=== PATIENT | female | born 1985 | race Caucasian/White ===

== ENCOUNTER → 2017-03-17 | Outpatient (CLI) | payer OTHER ==
[2017-03-17 10:33] LABS: FREE T4 1.06 NG/DL (0.76-1.46)
[2017-03-17 10:33] LABS: IRON (FE) 35 UG/DL (50-170)
== END ==
LOC: M LAB 09:18
DX: L65.9 Nonscarring hair loss, unspecified (principal)
CPT/HCPCS: 83540

== ENCOUNTER → 2017-03-27 | Outpatient (REF) | payer OTHER, MEDICARE | LOC: M SFHCPLAZ 11:42 | DX: Z12.4 Encounter for screening for malignant neoplasm of cervix (principal); E61.1 Iron deficiency ==

== ENCOUNTER → 2017-06-24 | Outpatient (REF) | payer MEDICARE ==
[2017-06-24 13:21] LABS: IRON (FE) 36 UG/DL (50-170)
== END ==
LOC: M SFHCPLAZ 08:40
DX: E61.1 Iron deficiency (principal)
CPT/HCPCS: 83540

== ENCOUNTER → 2017-09-25 | Outpatient (REF) | payer MEDICARE | LOC: M SFHCPLAZ 08:20 | DX: E61.1 Iron deficiency (principal); Z53.8 Procedure and treatment not carried out for other reasons ==

== ENCOUNTER → 2018-06-24 | Outpatient (CLI) | payer OTHER ==
--- NOTE | 2018-06-24 13:57 | REP ---
Left foot: Four views. History: Pain in the left foot. Findings: Four views of the left foot demonstrate overall normal mineralization. There is plantar calcaneal spurring. No fractures seen. Bones, joints and soft tissues are otherwise unremarkable. Impression: Plantar heel spur. No acute bony abnormality. Electronically Signed by David Leggett MD 06/24/2018 09:44 A
--- NOTE | 2018-06-24 13:57 | REP ---
Left rib series: Five views including PA chest. History: Left-sided rib pain. Findings: PA chest radiograph is normal. There is no evidence of infiltrate or atelectasis. No pneumothorax or hydrothorax is seen. Mediastinum is not widened. Heart size is normal. The lung orozco are clear. Multiple views of the left rib cage demonstrate no visible rib fracture or bony destructive lesion. Impression: Negative left rib radiographs. Electronically Signed by David Leggett MD 06/24/2018 09:43 A
== END ==
LOC: M RAD 08:43
PROVIDERS: ATTEND Family Medicine
DX: M77.32 Calcaneal spur, left foot (principal); R07.81 Pleurodynia

== ENCOUNTER → 2018-06-24 | Outpatient (REF) | payer OTHER ==
[2018-06-26 15:51] LABS: HPV HYBRID CAPTURE II Negative (Negative)
== END ==
LOC: M SFHCWAGY 11:40
PROVIDERS: ATTEND Nurse Practitioner Women's Health
DX: Z12.4 Encounter for screening for malignant neoplasm of cervix (principal); N87.0 Mild cervical dysplasia

== ENCOUNTER 2018-12-05 21:35 | Emergency (ER) | payer OTHER ==
[~2018-12-05] VITALS: Ht 170.2 cm; Wt 127.3 kg
[2018-12-05 21:57] LABS: BASO # 0.1 10^3/uL (0.0-0.2); BASO % 0.6 % (0.0-1.0); EOS # 0.3 10^3/uL (0.0-0.5); HEMATOCRIT 43.4 % (36.0-47.0); HEMOGLOBIN 14.4 g/dl (12.0-15.5); LYMPH % 21.9 % (24.0-44.0); MEAN CORPUSCULAR HEMOGLOBIN 27.4 pg (27.0-33.0); MEAN CORPUSCULAR HGB CONC 33.2 g/dl (32.0-36.5); MEAN CORPUSCULAR VOLUME 82.5 fl (80.0-96.0); MONO # 0.9 10^3/uL (0.0-0.8); MONO % 6.2 % (0.0-5.0); NEUTROPHILS # 9.5 10^3/uL (1.5-8.5); NEUTROPHILS % 68.9 % (36.0-66.0); PLATELET COUNT, AUTOMATED 294 10^3/uL (150-450); RED BLOOD COUNT 5.26 10^6/uL (4.00-5.40); WHITE BLOOD COUNT 13.8 10^3/uL (4.0-10.0)
[2018-12-05 22:23] LABS: BLOOD UREA NITROGEN 12 MG/DL (7-18); CALCIUM LEVEL 8.8 MG/DL (8.5-10.1); CARBON DIOXIDE LEVEL 28 MEQ/L (21-32); CHLORIDE LEVEL 106 MEQ/L (98-107); CK-MB VALUE MASS < 1.0 NG/ML (<3.6); CPK CREATINE PHOSPHOKINASE 68 U/L (26-192); CREATININE FOR GFR 0.73 MG/DL (0.55-1.30); GLOMERULAR FILTRATION RATE > 60.0 (>60); GLUCOSE, FASTING 107 MG/DL (70-100); MB/CK RELATIVE INDEX 1.47 (< OR =4); POTASSIUM SERUM 4.1 MEQ/L (3.5-5.1); SODIUM LEVEL 141 MEQ/L (136-145); TROPONIN I < 0.02 NG/ML (< 0.10)
[2018-12-05] MEDS ORDERED: ISOVUE-370 76% 100ML VIAL (Q9967) As Ordered ONE (23:06)
[2018-12-06] VITALS: BP 130/68
--- NOTE | 2018-12-06 00:06 | REPVR ---
PROCEDURE INFORMATION: Exam: CT Angiography Chest With Contrast Exam date and time: 12/05/2018 11:15 PM Clinical history: 33 years old, female; Chest pain; Additional info: Chest pain with SOB; R/O pe TECHNIQUE: Imaging protocol: Computed tomographic angiography of the chest with intravenous contrast. 3D rendering: MIP reconstructed images were created and reviewed. Radiation optimization: All CT scans at this facility use at least one of these dose optimization techniques: automated exposure control; mA and/or kV adjustment per patient size (includes targeted exams where dose is matched to clinical indication); or iterative reconstruction. Contrast material: ISO 370; Contrast volume: 75 ml; Contrast route: IV; COMPARISON: CR PORTABLE CHEST X-RAY 12/05/2018 9:50 PM FINDINGS: Pulmonary arteries: Normal. No pulmonary emboli. Aorta: Unremarkable. No aortic aneurysm. No aortic dissection. Lungs: Unremarkable. No consolidation. No masses. Pleural space: Unremarkable. No pneumothorax. No pleural effusion. Heart: Unremarkable. No cardiomegaly. No pericardial effusion. Lymph nodes: Unremarkable. No enlarged lymph nodes. Bones/joints: Unremarkable. No acute fracture. Soft tissues: Unremarkable. IMPRESSION: No acute findings. Electronically signed by: Bishop Wilson On 12/06/2018 00:06:12 AM
--- NOTE | 2018-12-06 07:43 | REP ---
Clinical: Acute chest pain . Comparison: None . Findings: The mediastinum and cardiac silhouette are stable and within normal limits for portable technique. The lung orozco are clear without acute consolidation, effusion, or pneumothorax. Skeletal structures are intact. Impression: No acute cardiopulmonary process appreciated. Electronically Signed by Mikel Dubois MD 12/06/2018 07:33 A
--- NOTE | 2018-12-06 20:14 | ECGEPIP ---
[facility] - ED Test Date: 2018-12-05 Pat Name: MEG FRANCIS Department: Room: - Gender: Female Long Term Care Phlebotomist: : [id number] Requested By: FILIBERTO MORALES Order Number: [id number] Reading MD: Orin Glover Measurements Intervals [place] Rate: 94 P: 17 MA: 154 QRS: 78 QRSD: 102 T: 15 QT: 349 QTc: 438 Interpretive Statements SINUS RHYTHM NONSPECIFIC ST T WAVE CHANGES DELAYED R WAVE PROGRESSION NO PRIOR ECG FOR COMPARISON Electronically Signed on 12-06-2018 20:14:23 EDT by Orin Glover
== END 2018-12-06 00:34 | disposition home or self-care (01) ==
LOC: M ED 21:35
DX: J20.9 Acute bronchitis, unspecified (principal); R60.0 Localized edema; R94.31 Abnormal electrocardiogram [ECG] [EKG]; F17.210 Nicotine dependence, cigarettes, uncomplicated
CPT/HCPCS: 36415; 71045; 71275; 80048; 82550; 82553; 85025; 85379; 93005; 93041; 94760; 99285; Q9967